=== PATIENT | female | born 1975 | race African-American/Black ===

== ENCOUNTER 2020-03-13 23:11 | Emergency (ER) | payer BC, SELFPAY ==
[2020-03-13 23:30] VITALS: BP 148/87; PULSE 86; RESP 15; TEMP 37; O2SAT 99; BMI 49.6
--- NOTE | 2020-03-13 23:36 | XR_ITS ---
PROCEDURE: XR CHEST 2V CLINICAL HISTORY: dizziness COMPARISON: CXR CHEST(2 VIEWS-NOT PORTABLE) from 03/21/2015 CXR CHEST(2 VIEWS-NOT PORTABLE) from 05/02/2017 XR CHEST 2V from 11/06/2019 FINDINGS: The cardiomediastinal silhouette and pulmonary vascularity are within normal limits. The lungs are clear without infiltrates, suspicious nodules, or pleural effusions. There are multi level moderate degenerate changes mid lower thoracic spine. No acute bony abnormalities. IMPRESSION: No acute findings. Dictated by: Dr. Bishnu Shepard MD 03/14/2020 08:[address] Bishnu Shepard MD in [place] 03/14/2020 08:33
--- NOTE | 2020-03-13 23:36 | CT_ITS ---
PROCEDURE: CT HEAD/BRAIN WO CON CLINICAL INDICATION: head pressure, dizziness COMPARISON: No exams were available for comparison TECHNIQUE: Axial images obtained. All CT scans at the facility use one or more dose reduction, viz: automated exposure control, ma/kV adjustment per patient size (including targeted exams where dose is matched to indication, i.e. head), or iterative reconstruction technique. FINDINGS: No midline shift, mass effect, intracranial hemorrhage, hydrocephalus, or extra-axial fluid collection is evident. The calvarium has an unremarkable appearance. No mastoid effusion. No sinus air-fluid level. IMPRESSION: No acute intracranial finding Dictated by: Dr. Bishnu Shepard MD 03/14/2020 08:[address] Bishnu Shepard MD in [place] 03/14/2020 08:32
[2020-03-13 23:39] VITALS: BP 141/77; BP 151/83; BP 157/93; PULSE 93; PULSE 95; PULSE 98
[2020-03-14] LABS: Anion Gap 13.6 mEq/L (5-15); Blood Urea Nitrogen 14 mg/dl (7-17); Calcium 9.3 mg/dl (8.4-10.2); Carbon Dioxide 26 mmol/L (22.0-30.0); Chloride 104 mmol/L (98-107); Creatinine Clearance Estimated 89 mL/min (50-200); Estimated Glomerular Filt Rate 91 ml/min (>60); GFR (African American) 110 ML/MIN (>60); Glucose 103 mg/dl (74-100); Potassium 3.6 mmoL/L (3.5-5.1); Sodium 140 mmol/L (136-145)
[2020-03-14 00:03] LABS: Basophils % 0.3 % (0.1-2.0); Eosinophils # 0.1 K/mm3 (0.0-0.4); Eosinophils % 1.1 % (0.1-12.0); Hematocrit 27.8 % (37.0-47.0); Lymphocytes # 4.7 K/mm3 (0.7-4.5); Mean Corpuscular HGB Conc 28.4 g/dL (31.8-35.4); Mean Corpuscular Hemoglobin 17.4 pg (27.0-31.2); Mean Corpuscular Volume 61.5 fl (81-99); Mean Platelet Volume 7.9 fl (7.4-10.4); Monocytes # 0.7 K/mm3 (0.1-1.0); Monocytes % 5.5 % (1.7-9.3); Neutrophils # 7.4 K/mm3 (1.8-7.8); Neutrophils % 57.1 % (37.0-80.0); Platelet Count 352 K/mm3 (142-424); Red Blood Count 4.52 M/mm3 (4.20-5.40); Red Cell Distribution Width 20.9 % (11.5-17.5)
[2020-03-14 00:08] LABS: Hemoglobin 7.9 g/dL (12.2-16.2)
[2020-03-14 00:15] LABS: Troponin I < 0.01 ng/ml (0.00-0.034)
--- NOTE | 2020-03-14 00:30 | HMH.EDDIZZ ---
ED Disposition Clinical Impression: Dizziness HTN (hypertension) Qualifiers: Hypertension type: unspecified Qualified Code(s): I10 - Essential (primary) hypertension Obesity Qualifiers: Obesity type: due to excess calories Obesity classification: adult class 3 (BMI >= 40) Serious obesity comorbidity presence: with serious comorbidity Body mass index: BMI 45.0-49.9 Qualified Code(s): E66.01 - Morbid (severe) obesity due to excess calories; Z68.42 - Body mass index (BMI) 45.0-49.9, adult Anemia Qualifiers: Anemia type: unspecified type Qualified Code(s): D64.9 - Anemia, unspecified Disposition: Home, Self-Care Condition on Discharge: Good Instructions: Dizziness, Nonvertigo Additional Instructions: call pcp and dr michael for follow up Prescriptions: lisinopriL [Lisinopril 5mg Tablet] 5 mg PO DAILY #14 tab Transmission Status: Pending to [facility] #[id number] Referrals: ProviderWashington MD [Primary Care Provider] - Kaylin Michael MD [Staff Physician] - - Critical Care Critical Care Time: No Attestation: On 03/13/20, the high probability of a clinically significant, sudden or life threatening deterioration of the following system(s) required my full and direct attention, intervention and personal management. The time I documented below is in addition to time spent performing reported procedures but includes the following listed in this critical care notation. Medical Decision Making - Medical Records Medical records reviewed: Yes: I reviewed the patient's medical records. - Nikko Inquiry Pt receiving controlled substance: No Vital Signs: 03/13/20 23:30 03/13/20 23:39 Temperature 98.6 F Temperature Source Oral Pulse Rate [Orthostatic Lying] 95 H Pulse Rate [Orthostatic Sitting] 98 H Pulse Rate [Orthostatic Standing] 93 H Pulse Rate [Right Brachial] 86 Respiratory Rate 15 Blood Pressure [Orthostatic Lying Right Arm] 157/93 H Blood Pressure [Orthostatic Sitting] 151/83 H Blood Pressure [Orthostatic Standing] 141/77 H Blood Pressure [Right Arm] 148/87 H Blood Pressure Mean [Right Arm] 107 Blood Pressure Source [Right Arm] Automatic Cuff Blood Pressure Position [Right Arm] Sitting 02 Sat by Pulse Oximetry 99 Oxygen Delivery Method Room Air - Lab Data Lab results reviewed: Yes: I reviewed the patient's lab results. Lab Results 03/13/20 23:41: WBC 13.0 H, RBC 4.52, Hgb 7.9 L*, Hct 27.8 L, MCV 61.5 L, MCH 17.4 L, MCHC 28.4 L, RDW 20.9 H, Plt Count 352, MPV 7.9, Neut % (Auto) 57.1, Lymph % (Auto) 36.0, [place] % (Auto) 5.5, Eos % (Auto) 1.1, Baso % (Auto) 0.3, Neut # (Auto) 7.4, Lymph # (Auto) 4.7 H, [place] # (Auto) 0.7, Eos # (Auto) 0.1, Baso # (Auto) 0.0 03/13/20 23:41: Sodium 140, Potassium 3.6, Chloride 104, Carbon Dioxide 26, Anion Gap 13.6, BUN 14, Creatinine 0.70, Estimated Creat Clear 89, Estimated GFR 91, Est GFR ( Amer) 110, Glucose 103 H, Calcium 9.3, Troponin I < 0.01 03/14/20 00:55: Stool Occult Blood Negative Result diagrams: 03/13/20 23:41 03/13/20 23:41 Orders (Tests/Meds): ORDERS Category Date Time Status CT head/brain wo con Stat Cat Scan 03/13/20 23:36 Taken XR chest 2V Stat Exams 03/13/20 23:36 Taken Ferritin Stat Lab 03/14/20 00:00 Received Iron Stat Lab 03/14/20 00:00 Received T4 (Thyroxine) Stat Lab 03/14/20 00:00 Received TSH [Thyroid Stimulating Hormone] Stat Lab 03/14/20 00:00 Received Total Iron Binding Capacity Stat Lab 03/14/20 00:00 Received Troponin I Q3H Lab 03/14/20 02:45 Ordered Troponin I Q3H Lab 03/14/20 05:45 Ordered - Radiology Data #1 Image(s): Chest Image Reviewed: Yes I reviewed the patient's radiology image Preliminary Findings: Normal/NAD - CT Data CT Scan: Head Time Received: 01:[address] Reviewed: Yes: I have viewed the radiologist's interpretation Preliminary Findings: Normal/NAD Dizzy HPI - General Chief Complaint: Dizziness Stated Complaint: Pressure on top of head,weak,High
[2020-03-14 01:00] LABS: Occult Blood,Stool Negative (Negative)
[2020-03-14 01:07] LABS: T4 (Thyroxine) 9.9 ug/dl (5.53-11.0)
[2020-03-14 01:19] VITALS: BP 142/89; PULSE 75; RESP 16; TEMP 36.8; O2SAT 98
[2020-03-14 01:19] LABS: Iron < 10 ug/dL (37-170)
[2020-03-14 01:21] LABS: Thyroid Stimulating Hormone 2.73 uIU/mL (0.465-4.68)
[2020-03-14 02:03] LABS: Total Iron Binding Capacity 400 ug/dL (265-497)
[2020-03-14 02:38] LABS: Ferritin 3.77 ng/ml (6.24-137)
== END 2020-03-14 01:22 | disposition home or self-care (01) ==
PROVIDERS: Emergency Provider Emergency Medicine
DX: R42 Dizziness and giddiness (principal); I10 Essential (primary) hypertension; E66.01 Morbid (severe) obesity due to excess calories; Z68.42 Body mass index [BMI] 45.0-49.9, adult; D64.9 Anemia, unspecified; Z79.899 Other long term (current) drug therapy
CPT/HCPCS: 70450; 71046; 80048; 82272; 82728; 83540; 83550; 84436; 84443; 84484; 85025; 99283; G0328

== ENCOUNTER 2021-06-23 14:59 | Emergency (ER) | payer OTHER, SELFPAY ==
[2021-06-23 15:30] VITALS: BP 141/96; PULSE 101; RESP 17; TEMP 37; O2SAT 100; BMI 50.5
--- NOTE | 2021-06-23 15:58 | XR_ITS ---
PROCEDURE INFORMATION: Exam: XR Left Knee Exam date and time: 06/23/2021 3:58 PM Age: 45 years old Clinical indication: Pain; Knee; Left; Additional info: Knee pain// persistent TECHNIQUE: Imaging protocol: XR Left knee. Views: 3 views. COMPARISON: CR [id number] XR foot LT min 3V 06/23/2018 8:35 PM FINDINGS: Bones/joints: No acute fracture or dislocation. Mild narrowing of the medial knee joint space suggesting underlying chondromalacia. Small medial and lateral femoral and tibial periarticular osteophytes. Mild patellofemoral osteoarthrosis with small patellar osteophytes. Small knee joint effusion.There are no lytic skeletal lesions seen. Soft tissues: No radiopaque foreign bodies. No pathologic soft tissue calcification. IMPRESSION: 1. No acute fracture or dislocation. 2. Three compartment osteoarthrosis, and mild chondromalacia in the medial knee. 3. Small knee joint effusion.
--- NOTE | 2021-06-23 16:16 | HMH.EDUTC ---
[facility] [place] Disposition Clinical Impression: Osteoarthritis Qualifiers: Osteoarthritis location: knee Osteoarthritis type: primary Laterality: left Qualified Code(s): M17.12 - Unilateral primary osteoarthritis, left knee Disposition: Home, Self-Care Condition on Discharge: Good Instructions: Osteoarthritis Additional Instructions: elevate knee motrin as needed for pain valtorn cream as needed for pain follow up with pcp for referral to ortho if worsening return or be seen in ed Prescriptions: predniSONE [Prednisone 20mg Tab] 20 mg PO BID #10 tab Transmission Status: Pending to [facility] # Diclofenac Sodium [Voltaren Arthritis Pain] 50 gm TP BID PRN 14 Days #1 gm PRN Reason: Mild Pain Transmission Status: Pending to [facility] # Referrals: Provider,Referral, MD [Primary Care Provider] - Time of Disposition: 16:46 Medical Decision Making - Nikko Inquiry Pt receiving controlled substance: No Vital Signs: 06/23/21 15:30 Temperature 98.6 F Temperature Source Oral Pulse Rate [Right Brachial] 101 H Respiratory Rate 17 Blood Pressure [Right Arm] 141/96 H Blood Pressure Mean [Right Arm] 111 Blood Pressure Source [Right Arm] Automatic Cuff Blood Pressure Position [Right Arm] Sitting 02 Sat by Pulse Oximetry 100 Oxygen Delivery Method Room Air Orders (Tests/Meds): ORDERS Category Date Time Status Knee XR left 3 views [XR knee LT 3V] Stat Exams 06/23/21 15:58 Ordered [facility] [place] HPI - General Chief complaint: [facility] Stated complaint: left knee pain Time Seen by Provider: 06/23/21 16:00 Mode of Arrival: Ambulatory Source of Information: Patient Limitations: No Limitations Description of Symptoms (Recalled from Triage Doc. by RN): PATIENT C/O PAIN TO BACK OF LEFT KNEE FOR SEVERAL MONTHS HEENT Symptoms (Recalled from RN notes): No Resp Symptoms (Recalled from RN notes): No Skin Symptoms (Recalled from RN notes): No MS Symptoms (Recalled from RN notes): Yes Functional Status (Recalled from RN notes): WNL - History of Present Illness Provider Complaint: 45 yr old female presents for left knee pain. pt states over several months she has been having pain in knee but over the last couple days the pain comes and goes and feels pinching in the joint. - Related Data Previous Rx's Medication Instructions Recorded Albuterol Sulfate [Albuterol HFA 1 puff IH Q4HP PRN #1 inh 11/06/19 Inhaler] Azithromycin [Zithromax 250mg 250 mg PO DIRECTED #6 tab 11/06/19 tab] predniSONE [Prednisone 20mg 20 mg PO BID #10 tab 11/06/19 Tab] lisinopriL [Lisinopril 5mg 5 mg PO DAILY #14 tab 03/14/20 Tablet] Diclofenac Sodium [Voltaren 50 gm TP BID PRN 14 Days #1 gm 06/23/21 Arthritis Pain] predniSONE [Prednisone 20mg 20 mg PO BID #10 tab 06/23/21 Tab] Allergies Allergy/AdvReac Type Severity Reaction Status Date / Time aspirin [ASPIRIN] Allergy Unknown Verified 06/23/18 20:41 - Worker's Comp Is this a Worker's Comp case?: No H History - Hepatitis A Screen Drug use history?: No High risk sexual behaviors?: No History of sexually transmitted infection?: No Currently employed?: No Childcare worker?: No Do you have indoor plumbing?: Yes Do you have electricity?: Yes Attestation statement:: This patient has been screened for Hepatitis A risk factors. I have reviewed the patient's past medical history: Yes Medical History: Denies:: Diabetes Mellitus Type 1, Diabetes Mellitus Type 2, Hypertension Laterality Cases: Bilateral: Carpal Tunnel Release, Tonsillectomy Other Surgeries: Yes: Other (CTR, gastric bypass) - Social History Smoking Status: Never smoker Alcohol Intake: never Occupational Status: other ROS Obtained: Yes Systems reviewed as appropriate & no additional complaints - Constitutional Constitutional: Reports system reviewed and no additional complaints, except as docu, Denies fever(s) - Eyes Eyes: Repor
[2021-06-23 16:48] VITALS: BP 141/96; PULSE 101; RESP 17; TEMP 37; O2SAT 100
== END 2021-06-23 16:52 | disposition home or self-care (01) ==
PROVIDERS: Emergency Provider Nurse Practitioner Family
DX: M17.12 Unilateral primary osteoarthritis, left knee (principal)
CPT/HCPCS: 73562; 99202; G0463

== ENCOUNTER → 2021-10-10 14:22 | Outpatient (CLI) | payer OTHER, SELFPAY | PROVIDERS: Visit Provider Nurse Practitioner | DX: Z20.822 Contact with and (suspected) exposure to COVID-19 (principal) | CPT/HCPCS: C9803; U0003; U0005 ==

== ENCOUNTER 2022-01-30 09:30 | Emergency (ER) | payer OTHER, SELFPAY ==
[2022-01-30 09:52] VITALS: BP 167/66; PULSE 87; RESP 22; TEMP 36.9; O2SAT 98; BMI 51.8
--- NOTE | 2022-01-30 09:58 | HMH.EDUTC ---
[facility] [place] Disposition Clinical Impression: Viral syndrome, Exposure to COVID-19 virus, Bronchitis Disposition: Home, Self-Care Condition on Discharge: Good Instructions: DI for Acute Bronchitis, DI for COVID-19 (Suspected or Confirmed ), Preventing the Spread of Coronavirus Discharge Instructions Additional Instructions: Drink plenty of fluids. Take tylenol or ibuprofen for pain or fever. Take the medications as directed. Follow up with your regular doctor. GO TO THE ER FOR ANY WORSENING SYMPTOMS The cough medication (promethazine dm) will make you drowsy, so don't drive or operate heavy machinery after taking it. Prescriptions: Promethazine/Dextromethorphan [Promethazine-Dm Syrup] 5 ml PO Q6HP PRN #240 ml PRN Reason: Cough Transmission Status: Received by [facility] #[id number] methylPREDNISolone [Medrol] 4 mg PO DIRECTED 6 Days #21 packet Transmission Status: Received by [facility] # Azithromycin [Z-Lester 250mg Tab*] 250 mg PO UD DOSE PK #6 tab Transmission Status: Received by [facility] #[id number] Referrals: Provider,Referral, [Primary Care Provider] - Forms: Work/School Release Time of Disposition: 11:01 Medical Decision Making - Medical Records Medical records reviewed: No: I reviewed the patient's medical records. - Nikko Inquiry Pt receiving controlled substance: No Vital Signs: 01/30/22 09:52 01/30/22 11:14 Temperature 98.5 F 98.5 F Temperature Source Oral Pulse Rate 87 Pulse Rate [Radial] 87 Respiratory Rate 22 22 Blood Pressure 150/80 H Blood Pressure [Right Arm] 167/66 H Blood Pressure Mean [Right Arm] 99 02 Sat by Pulse Oximetry 98 - Lab Data Lab results reviewed: Yes: I reviewed the patient's lab results. Lab Results 01/30/22 09:45: Group A Strep Rapid Negative 01/30/22 09:45: Chlamy pneumoniae PCR Not detected, Adenovirus (PCR) Not detected, B. pertussis DNA (PCR) Not detected, Coronavirus OC43 (PCR) Not detected, Coronavirus HKU1 (PCR) Not detected, Coronavirus 229E (PCR) Not detected, SARS-CoV-2 (PCR) Detected A, Coronavirus NL63 (PCR) Not detected, Human Metapneumovir PCR Not detected, Influenza A (H1) PCR Not detected, Influ A (H1N1/09) PCR Not detected, Influenza A (H3) PCR Not detected, Influenza Type A (PCR) Not detected, Influenza Type B (PCR) Not detected, M. pneumoniae (PCR) Not detected, Parainfluenza 1 (PCR) Not detected, Parainfluenza 2 (PCR) Not detected, Parainfluenza 3 (PCR) Not detected, Parainfluenza 4 (PCR) Not detected, RSV (PCR) Not detected, Entero/Rhino (PCR) Not detected 01/30/22 09:57: Influenza Type A Ag Negative, Influenza Type B Ag Negative Orders (Tests/Meds): ORDERS Category Date Time Status Strep Screen Confirmation Stat Micro 01/30/22 09:45 Received [facility] [place] HPI - General Stated complaint: Cough Time Seen by Provider: 01/30/22 09:58 - History of Present Illness Provider Complaint: SHe states that for the past 2 days she has had worsening sore throat, chills, low grade fever, body aches, - Related Data Previous Rx's Medication Instructions Recorded Albuterol Sulfate [Albuterol HFA 1 puff IH Q4HP PRN #1 inh 11/06/19 Inhaler] Azithromycin [Zithromax 250mg 250 mg PO DIRECTED #6 tab 11/06/19 tab] predniSONE [Prednisone 20mg 20 mg PO BID #10 tab 11/06/19 Tab] lisinopriL [Lisinopril 5mg 5 mg PO DAILY #14 tab 03/14/20 Tablet] Diclofenac Sodium [Voltaren 50 gm TP BID PRN 14 Days #1 gm 06/23/21 Arthritis Pain] predniSONE [Prednisone 20mg 20 mg PO BID #10 tab 06/23/21 Tab] Azithromycin [Z-Lester 250mg Tab*] 250 mg PO UD DOSE PK #6 tab 01/30/22 Promethazine/Dextromethorphan 5 ml PO Q6HP PRN #240 ml 01/30/22 [Promethazine-Dm Syrup] methylPREDNISolone [Medrol] 4 mg PO DIRECTED 6 Days #21 01/30/22 packet Allergies Allergy/AdvReac Type Severity Reaction Status Date / Time aspirin [ASPIRIN] Allergy Unknown Verified 01/30/22 09:58 HM
[2022-01-30 10:11] LABS: Adenovirus,PCR Not Detected (NotDetected); Bordetella Pertussis Not Detected (NotDetected); Chlamydophila Pneumoniae, PCR Not Detected (NotDetected); Coronavirus 229E Not Detected (NotDetected); Coronavirus NL63 Not Detected (NotDetected); Coronavirus OC43 Not Detected (NotDetected); Coronovirus HKU1,PCR Not Detected (NotDetected); Human Metapneumovirus Not Detected (NotDetected); Influenza A, PCR Not Detected (NotDetected); Influenza AH1, 2009 Not Detected (NotDetected); Influenza AH1, PCR Not Detected (NotDetected); Influenza AH3,PCR Not Detected (NotDetected); Influenza B, PCR Not Detected (NotDetected); Mycoplasma Pneumoniae, PCR Not Detected (NotDetected); Parainfluenza 1, PCR Not Detected (NotDetected); Parainfluenza 2, PCR Not Detected (NotDetected); Parainfluenza 3, PCR Not Detected (NotDetected); Parainfluenza 4, PCR Not Detected (NotDetected); Respiratory Syncytial Virus Not Detected (NotDetected); Rhinovirus/Enterovirus Not Detected (NotDetected)
[2022-01-30 10:27] LABS: Strep Scrn Group A (Rapid) Negative (Negative)
[2022-01-30 11:14] VITALS: BP 150/80; PULSE 87; RESP 22; TEMP 36.9
[2022-01-30 18:59] LABS: Coronavirus 19, PCR Detected (NotDetected)
[2022-01-30 19:15] LABS: UTC Influenza A Antigen Negative (Negative)
[2022-01-30 19:16] LABS: UTC Influenza B Antigen Negative (Negative)
== END 2022-01-30 11:15 | disposition home or self-care (01) ==
PROVIDERS: Emergency Provider Nurse Practitioner Family
DX: U07.1 COVID-19 (principal); J20.9 Acute bronchitis, unspecified
CPT/HCPCS: 87430; 87581; 87632; 87798; 87804; 99213; C9803; G0463; U0003; U0005

== ENCOUNTER 2023-10-22 10:43 | Emergency (ER) | payer BC, SELFPAY ==
[2023-10-22 11:00] VITALS: BP 140/76; PULSE 76; RESP 18; TEMP 37; O2SAT 98; BMI 56.6
--- NOTE | 2023-10-22 11:03 | EXP.UTC ---
Discharge Plan Disposition Patient Disposition: Home, Self-Care Condition: Good Prescriptions Prescriptions: New azithromycin [Zithromax] 250 mg tablet 250 mg PO UD DOSE PK Qty: 6 0RF Rx Instructions: Take two (2) tablets today, then one (1) tablet days #2 thru #5 benzonatate [benzonatate] 100 mg capsule 100 mg PO TIDP PRN (Reason: Cough) Qty: 30 0RF ondansetron 4 mg Tablet,Disintegrating 4 mg PO Q8H PRN (Reason: Nausea) Qty: 9 0RF promethazine-DM 6.25-15 mg/5 mL Syrup 5 ml PO Q6H PRN (Reason: Cough) Qty: 240 0RF No Action albuterol sulfate 18 GM HFA aerosol inhaler 1 puff IH Q4HP PRN (Reason: Shortness Of Breath Or Wheezing) Qty: 1 0RF Referrals Follow up/Referrals: Provider,Referral, MD [Primary Care Provider] - See instructions Activity Restrictions/Add. Instructions Additional Instructions/Restrictions: Drink plenty of fluids. Take tylenol or ibuprofen for pain or fever. Take the medications as directed. Follow up with your regular doctor. GO TO THE ER FOR ANY WORSENING SYMPTOMS The promethazine dm (cough syrup) will make you drowsy, so don't drive or operate heavy machinery after taking it. Clinical Impressions Clinical Impression: Bronchitis, Sinusitis Stand Alone Forms Stand Alone Forms: Work/School Release Instructions Patient Instructions: Sinusitis, DI for Sinusitis, DI for Acute Bronchitis Discharge ED Provider: Peter Vallejo [facility] [place] General Stated complaint: cough, diarrea, congestion Time Seen by Provider: 10/22/23 11:03 History of Present Illness Provider Complaint: She states that since last night she has had nonproductive cough, sinus congestion, scratchy throat, malaise, nausea and diarrhea. She denies documented fever. Related Data Previous Rx's Medication Instructions Recorded albuterol sulfate 90 mcg/actuation 1 puff IH Q4HP PRN Shortness Of 11/06/19 aerosol inhaler Breath Or Wheezing #1 inh azithromycin 250 mg tablet 250 mg PO UD DOSE PK #6 tabs 10/22/23 (Zithromax) benzonatate 100 mg capsule 100 mg PO TIDP PRN Cough #30 caps 10/22/23 ondansetron 4 mg disintegrating 4 mg PO Q8H PRN Nausea #9 tabs 10/22/23 tablet promethazine-DM 6.25 mg-15 mg/5 mL 5 ml PO Q6H PRN Cough #240 mL 10/22/23 oral syrup Allergies Allergy/AdvReac Type Severity Reaction Status Date / Time aspirin [ASPIRIN] Allergy Unknown Verified 10/22/23 11:12 [facility] Disclaimer: The information contained in this section may have been updated after the patient was seen, as this information can be updated by other users. Social History Smoking Status: Never smoker alcohol intake: never current occupational status: other Travel in the last 8 weeks: None ROS Obtained: Yes All systems reviewed & no additional complaints except as documented Constitutional Constitutional: Reports poor appetite Eyes Eyes: Reports system reviewed and no additional complaints, except as documented ENT Ears, Nose, Mouth, and Throat: Reports as per HPI Cardiovascular Cardiovascular: Reports system reviewed and no additional complaints, except as documented and Denies chest pain Respiratory Respiratory: Denies shortness of breath, Reports chest congestion, Reports cough, Denies stridor and Denies wheezing Gastrointestinal Gastrointestingal: Reports system reviewed and no additional complaints, except as documented; Denies abdominal pain, diarrhea or vomiting Musculoskeletal Musculoskeletal: Reports system reviewed and no additional complaints, except as documented and Denies arthralgias Integumentary/Breasts Skin/Breast: Reports system reviewed and no additional complaints, except as documented and Denies rash Neurologic Neurologic: Denies paresthesias Allergic/Immunologic Allergic/Immunologic: Denies wheezing Physical Exam General General appearance: alert and in no apparent distress Eye Eye exam: Present normal appearance, PERRL and EOMI ENT ENT exam: Present mucous membranes moist and normal external ear exam Expanded ENT Exam External ear exam: Present normal external inspection TM/Canal exam: Bilateral TM: erythema and bulging Nose exam: Absent sinus tenderness Nasal speculum exam: Bilateral: normal Mouth exam: Present normal external inspection; Absent drooling Teeth exam: Present normal inspection Throat exam: Present tonsillar erythema and tonsillomegaly Neck Neck exam: Present normal inspection, full ROM and trachea midline; Absent tenderness, lymphadenopathy or thyromegaly Chest Chest inspection: Present normal inspection and symmetric chest wall rise; Absent tenderness or rash Respiratory Respiratory exam: Present normal lung sounds bilaterally; Absent respiratory distress, wheezes, stridor or accessory muscle use Cardiovascular Cardiovascular exam: Present regular rate, normal rhythm and normal heart sounds Abdominal Exam Abdominal exam: Present soft; Absent distention, tenderness, guarding, rebound or rigidity Extremities Exam Extremities exam: Present normal inspection, full ROM and normal capillary refill; Absent tenderness or calf tenderness Back Exam Back exam: Present normal inspection and full ROM; Absent tenderness Neurological Exam Neurological exam: Present alert and oriented X3 Psychiatric Psychiatric exam: Present normal affect and normal mood Skin Skin exam: Present warm, dry, intact and normal color Lymphatic Lymphatic Findings: no adenopathy Medical Decision Making Medical Records Medical records reviewed: No I reviewed the patient's medical records. Nikko Inquiry Pt receiving controlled substance: No Lab Data Lab results reviewed: Yes I reviewed the patient's lab results.
[2023-10-22 11:50] LABS: UTC Influenza A Antigen Negative (Negative)
[2023-10-22 11:51] LABS: UTC Influenza B Antigen Negative (Negative)
[2023-10-22 12:05] VITALS: BP 140/76; PULSE 76; RESP 18; TEMP 37; O2SAT 98
== END 2023-10-22 12:05 | disposition home or self-care (01) ==
PROVIDERS: Emergency Provider Nurse Practitioner Family
DX: J20.9 Acute bronchitis, unspecified (principal); J01.90 Acute sinusitis, unspecified; R07.0 Pain in throat; R19.7 Diarrhea, unspecified; R11.0 Nausea; R53.81 Other malaise; R05.9 Cough, unspecified; R09.81 Nasal congestion
CPT/HCPCS: 87804; 99212; 99214; G0463